=== PATIENT | male | born 1975 | race Hispanic/Latino ===

== ENCOUNTER 2019-03-11 07:54 | Day surgery (SDC) | payer BC ==
[2019-03-06 12:32] VITALS: BMI 26.5
[2019-03-11 08:51] LABS: BASO # 0.02 K/mm3 (0.0-2.0); BASO % 0.5 % (0.0-3.0); EOS # 0.1 (0.0-0.7); EOS % 1.4 % (1.5-5.0); HEMOGLOBIN 16.3 g/dL (14.0-18.0); LYMPH # 1.6 (1.2-3.4); LYMPH % 35.8 % (22.0-35.0); MEAN CELL VOLUME 84.7 fl (80.0-105.0); MEAN CORPUSCULAR HGB CONC 34.2 g/dl (31.0-37.0); MEAN PLATELET VOLUME 8.7 fl (7.0-11.0); MONO # 0.5 (0.1-0.6); RBC 5.62 10^6/uL (3.5-6.1); RED CELL DISTRIBUTION WIDTH 13.2 % (11.5-14.5); WHITE BLOOD COUNT 4.4 10^3/uL (4.5-11.0)
[2019-03-11 08:59] LABS: ALB/GLOB RATIO 1.4 (1.1-1.8); ALBUMIN 4.5 g/dL (3.0-4.8); ALT/SGPT 42 U/L (7-56); AMYLASE 49 U/L (35-125); AST/SGOT 30 U/L (17-59); BLOOD UREA NITROGEN 15 mg/dL (7-21); CALCIUM 9.3 mg/dL (8.4-10.5); GAMMA GLUTAMYL TRANSPEPTIDASE 25 U/L (8-78); GFR NON-AFRICAN AMERICAN > 60; LIPASE 49 U/L (23-300)
[2019-03-11 09:03] LABS: INR 1.12; PARTIAL THROMBOPLASTIN TIME 38.1 Seconds (26.9-38.3); PROTHROMBIN TIME 12.6 SECONDS (9.4-12.5)
[2019-03-11] MEDS ORDERED: Propofol 10 mg/ml Inj (20 ML) ONE ×2 (09:36→10:32)
[2019-03-11] MEDS ORDERED: Midazolam 2 MG/2 ML VIAL ONE (09:37)
[2019-03-11] MEDS ORDERED: Sodium Chloride 0.9% 1,000 ML IV SCH (11:45)
[2019-03-11 14:31] VITALS: BP 114/78; PULSE 61; RESP 15; TEMP 97.5; O2SAT 98
== END 2019-03-11 15:21 | disposition home or self-care (01) ==
LOC: ENDO 07:54
PROVIDERS: ATTEND Internal Medicine Gastroenterology
DX: K57.30 Diverticulosis of large intestine without perforation or abscess without bleeding (principal); K63.5 Polyp of colon; K64.0 First degree hemorrhoids; K29.70 Gastritis, unspecified, without bleeding; K29.80 Duodenitis without bleeding; R10.12 Left upper quadrant pain; K21.9 Gastro-esophageal reflux disease without esophagitis
CPT/HCPCS: 36415; 43239; 43259; 45380; 80053; 82150; 82248; 82977; 83690; 85025; 85610; 85730; 88305; 88342; J2001; J2250; J2704; J3010; J7030